=== PATIENT | male | born 1955 | race Caucasian/White ===

== ENCOUNTER 2024-05-06 07:53 | Inpatient (IN) ==
--- NOTE | 2024-04-08 10:07 | PAT Medication Instructions ---
Medication Instructions Date of Service April 08, 2024 Home Medications aspirin 81 mg tablet,delayed release 40.5 mg PO BID Equolibrium 1 tab PO QAM [place] 1 tab PO QAM scvlklz-eszriemtkmcja-ihbmxhay 250 mg-250 mg-65 mg tablet (Excedrin Migraine) 1 tab PO Q6H PRN Headache cholecalciferol (vitamin D3) 125 mcg (5,000 unit) tablet (Vitamin D3) 125 mcg PO QAM magnesium 1 tab PO QAM tamsulosin 0.4 mg capsule (Flomax) 0.4 mg PO DAILY PRN urinary flow slowing vitamin K2 1 tab PO QAM ASK your surgeon for instructions xxgnbeg-ycclmimxgzixa-ejkipitx 250 mg-250 mg-65 mg tablet (Excedrin Migraine) 1 tab PO Q6H PRN Headache ASK your prescriber and surgeon aspirin 81 mg tablet,delayed release 40.5 mg PO BID STOP taking 2 weeks before surgery (or as soon as possible if surgery is within 2 weeks) Equolibrium 1 tab PO QAM [place] 1 tab PO QAM vitamin K2 1 tab PO QAM DO NOT take the morning of surgery cholecalciferol (vitamin D3) 125 mcg (5,000 unit) tablet (Vitamin D3) 125 mcg PO QAM magnesium 1 tab PO QAM Take morning of surgery With a small sip of water, OTHERWISE NOTHING TO EAT OR DRINK AFTER MIDNIGHT: tamsulosin 0.4 mg capsule (Flomax) 0.4 mg PO DAILY PRN urinary flow slowing (if needed) Other Notes If you have any questions please call us at [phone] or [phone] or [phone] or [phone]
--- NOTE | 2024-04-16 10:43 | Anesthesiology Consultation ---
Date of Service April 16, 2024 Assessment & Plan (1) Encounter for pre-operative examination: Chart Review Chart Review: Acceptable Risk for Surgery and Patient seen in Pre Admission Testing Per PAT appt on 04/16/24, no recent illness/disease exposures, illness related symptoms, or recent illness/disease positive tests. Will leave to surgeon's discretion if preop Covid testing needed Patient seen by PCP 04/21/24= seen for preop exam. Reviewed preop testing. Patient is medically cleared for surgery. Continue medications as directed. Hold NSAIDs, supplements and vitamins 7 days prior to surgery. Pt expressed that surgeon advised patient to continue ASA 81mg daily. Teaching & Discussion Pre-Anesthesia Teaching/Discussion Notes: Instructed NPO after midnight before surgery,except medications with 15 cc of water. Medication instructions provided according to the [facility] guidelines. History Surgery Operation Date: 05/06/24 07:45 Proposed Procedures p L2 to S1 Decompression and Fusion Spinal Cord Monitoring - Richie Loomis, Height/Weight Height: 6 ft Weight: 96.8 kg Allergies Allergy/AdvReac Type Severity Reaction Status Date / Time adhesive Allergy skin Verified 04/08/24 09:01 irritation Medications Home Medications Medication Instructions Recorded Confirmed Last Taken aspirin 81 mg tablet,delayed 40.5 mg PO BID 10/09/19 04/08/24 Unknown release Equolibrium 1 tab PO QAM 04/08/24 04/08/24 Unknown [place] 1 tab PO QAM 04/08/24 04/08/24 Unknown cvkohks-taanwktqxglem-qyhhpzcz 250 1 tab PO Q6H PRN Headache 04/08/24 04/08/24 Unknown mg-250 mg-65 mg tablet (Excedrin Migraine) cholecalciferol (vitamin D3) 125 125 mcg PO QAM 04/08/24 04/08/24 Unknown mcg (5,000 unit) tablet (Vitamin D3) magnesium 1 tab PO QAM 04/08/24 04/08/24 Unknown tamsulosin 0.4 mg capsule (Flomax) 0.4 mg PO DAILY PRN urinary flow 04/08/24 04/08/24 Unknown slowing vitamin K2 1 tab PO QAM 04/08/24 04/08/24 Unknown Past Medical History Medical History History of abdominal aortic aneurysm (AAA) s/p repair [address] 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 Hx of migraines None x years Left inguinal hernia also presumed umbilical hernia as well Nephrolithiasis no current issues Prostate cancer Dx 2016, "taken natural supplements to manage" no current issues Exercise / Class Metabolic Activity II 4-5 Yardwork/Stairs/Walk up hill (one flight of stairs- no chest pain or SOB ) Past Family History Family History Brother Diabetes Past Surgical History Surgical History History of AAA (abdominal aortic aneurysm) repair 2022 ([facility]) History of anesthesia reaction Trouble urinating after surgery (multiple) History of urologic surgery Stone extraction Hx of colonoscopy Hx of cornea transplant left eye Hx of right inguinal hernia repair S/P appendectomy S/P knee replacement right Past Anesthesia History No Hx of Anesthesia Complications (with exception to urinary retention (significant) and slow to wake (just groggy - no reintubation or ICU stay)) and No Family Hx of Anesthesia Complications History of PONV No Hx of PONV and No Hx of Motion Sickness Social History Smoking Status: Former smoker Do You Dip or Chew Tobacco: No Smoking End Date: 03/2024 Hx Alcohol Use: Yes (quit age 33) Hx Substance Use: Yes substance use type: former substance user and marijuana Last Used Substance Other:: quit age 33 Review of Systems - Increased coughing since quit smoking- improving - Rare reflux - no current issues- usually relieved with Tums and apple cider vinegar - Snoring- no hx of sleep study Patient denies chest pain, shortness of breath, dyspnea on exertion, reflux, wheezing, palpitations. No hx of seizures, stroke, LA. No hx of blood clots or blood transfusions Physical Exam Vital Signs VITALS BP 130/84 P 65 TEMP 97.7 SP02 94% RESP 16 Constitutional no acute distress ENMT Mouth: no TMJ clicking Thyromental Distance: > or= 3.5 Finger Breadths (4.0) Mallampati Class: III Top front permanent bridge Missing molars/side teeth Neck + limited neck extension and + facial hair (advised to trim/shave ) Respiratory normal respiratory effort; no respiratory distress Auscultation: lungs clear to auscultation bilaterally; no wheezes Cardiovascular Rate/Rhythm: regular rate and regular rhythm Heart Sounds: no murmur Vessels: no carotid bruit Musculoskeletal Spine: no pain with cervical ROM Extremities: extremities normal to inspection Psychiatric Orientation: alert Lab Results Anesthesia Preop Results Results Anesthesia Widget: WBC 6.30 K/ul (4.8-10.8) 04/16/24 Hgb 14.1 g/dl (14.0-18.0) 04/16/24 Hct 41.2 % (42.0-52.0) L 04/16/24 Plt 232 K/uL (130-400) 04/16/24 Na 138 mmol/L (136-145) 04/16/24 K 4.2 mmol/L (3.5-5.1) 04/16/24 Cl 103 mmol/L (98-107) 04/16/24 CO2 29 mmol/L (21-32) 04/16/24 BUN 18 mg/dl (6-23) 04/16/24 Creat 0.58 mg/dl (0.6-1.4) L 04/16/24 Glucose Level 108 mg/dl (70-99(Fasting)) H 04/16/24 PT 10.5 Seconds (9.0-12.0) 04/16/24 PTT 27 Seconds (21-31) 04/16/24 INR 1.0 (0.9-1.1) 04/16/24 Urine Color Yellow 04/16/24 Urine Appearance Clear (Clear) 04/16/24 Urine pH 7.5 (4.5-7.5) 04/16/24 Urine Specific [place] 1.022 (1.000-1.030) 04/16/24 Urine Protein 1+ (Negative) H 04/16/24 Urine Glucose (UA) Negative (Negative) 04/16/24 Urine Ketones Negative (Negative) 04/16/24 Urine Blood 1+ (Negative) H 04/16/24 Urine Nitrite Negative (Negative) 04/16/24 Urine Bilirubin Negative (Negative) 04/16/24 Urine Urobilinogen Negative (Negative) 04/16/24 Urine Leukocyte Esterase Negative (Negative) 04/16/24 Urine WBC (Auto) 0-5 /hpf (0-5) 04/16/24 Urine RBC (Auto) 11-20 /hpf (0-2) H 04/16/24 Urine Hyaline Casts (Auto) 0-2 /lpf (0-2) 04/16/24 Urine Epithelial Cells (Auto) 0-2 /hpf (0-2) 04/16/24 Urine Bacteria (Auto) None Seen (None Seen) 04/16/24 Blood Type A Positive 04/16/24 Antibody Screen NEGATIVE 04/16/24 Testing Electrocardiogram Date: 04/16/24 Findings: + NSR @ (66bpm) RBBB Chest X-Ray Date: 04/16/24 Findings: + NAD Stress Test Date: 11/02/22 Type: nuclear Exercise stress test performed using the Willie protocol supplemented with regadenoson EKG portion of stress is normal No ischemic ST segment changes. No stress associated chest pain. No significant dysrhythmia. Incomplete RBBB Post stress, the LV with an EF of 66% Normal RV size, uptake and function Good study quality Normal myocardial perfusion study. The study findings represent a low risk Other Testing Abdomen/Pelvis CTA 02/13/24= Postprocedural changes of aorto-bi iliac endograft placement. Excluded aneurysm sac is decreased in size measuring 4.7 x 4.6 cm, previously 5.3 x 5.1 cm. No evidence of endoleak. 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 Interval increase in size of an intermediate density lesion in the anterior aspect of the right kidney measuring 2.5cm. previously 2.1cm. This is indeterminate though favored to represent a cyst with internal hemorrhagic or proteinaceous disease. Recommend further evaluation with renal ultrasound to confirm cystic nature and rule out solid mass, particularly given increase in size. Apparent circumferential wall thickening of a poorly distended bladder. Appearance is likely due to under distension, though could also be due to chronic bladder outl et obstruction given severe prostatomegaly
[~2024-05-06 07:53] MED LIST: DEXAMETHASONE SOD INJ 4 MG/ML VIAL ONE; GLYCOPYRROLATE 0.2 MG/ML VIAL ONE; LIDOCAINE 2% 2 ML VIAL/AMP(20MG/ML) INFIL ONE; MIDAZOLAM HCL 1 MG/ML 2ML VIAL ONE; ONDANSETRON INJ 2 MG/ML 2 ML VIAL ONE; PROPOFOL IV EMULSION 10 MG/ML 20 ML VIAL IV ONE; ROCURONIUM BROMIDE 10 MG/ML 5 ML VIAL IV ONE; SUGAMMADEX SODIUM 200 MG/2 ML VIAL IV ONE; fentaNYL citrate PF 100 MCG/2 ML VIAL ONE
[2024-05-06] MEDS: LR 15ML/HR IV SCH (08:25)
[2024-05-06] MEDS: LR 60ML/HR IV SCH (08:25)
[2024-05-06] MEDS: GABAPENTIN 300 MG CAP PO SCH (08:26)
[2024-05-06] MEDS: CeleBREX 200 MG CAP PO SCH (08:26)
[2024-05-06] MEDS: ACETAMINOPHEN 500 MG TAB PO SCH (08:26)
[2024-05-06] MEDS ORDERED: FLUMAZENIL 0.1 MG/1 ML 10 ML VIAL IV PRN (08:29)
[2024-05-06] MEDS ORDERED: NALOXONE HCL 0.4 MG/1 ML VIAL/CARP IV PRN ×2 (08:29→14:50)
[2024-05-06] MEDS ORDERED: ATROPINE SULFATE 0.1 MG/ML 10ML SYR IV PRN (08:29)
[2024-05-06] MEDS ORDERED: LABETALOL HCL IV 5 MG/ML 20ML IV PRN (08:29)
[2024-05-06] MEDS ORDERED: HYDROmorphone INJ 1 MG/ML SYRINGE IV PRN ×2 (08:29→14:50)
[2024-05-06] MEDS ORDERED: PROMETHAZINE HCL 6.25 MG in SODIUM CHLORIDE 0.9% 50 ML IV PRN (08:29)
[2024-05-06] MEDS ORDERED: ePHEDrine sulfate 50 MG/ML AMP IV PRN (08:29)
[2024-05-06] MEDS ORDERED: ONDANSETRON INJ 2 MG/ML 2 ML VIAL IV PRN ×2 (08:29→14:50)
[2024-05-06] MEDS ORDERED: fentaNYL citrate PF 100 MCG/2 ML VIAL IV PRN (08:29)
--- NOTE | 2024-05-06 09:03 | History & Physical Report ---
Date of Service May 06, 2024 Assessment & Plan (1) Lumbosacral spondylosis with radiculopathy: Plan: L3-S1 decompression and fusion History of Present Illness Chief Complaint: Back and bilateral leg pain Primary Care Provider: Herman Hurley This is a 68-year-old male presents for chronic persistent back and leg pain after failing course of nonoperative care is here for surgical invention. Allergies Allergy/AdvReac Type Severity Reaction Status Date / Time adhesive Allergy skin Verified 04/08/24 09:01 irritation Home Medications Medication Instructions Recorded Confirmed Type aspirin 81 mg tablet,delayed 40.5 mg PO BID 10/09/19 05/06/24 History release Equolibrium 1 tab PO QAM 04/08/24 05/06/24 History [place] 1 tab PO QAM 04/08/24 05/06/24 History lwpwhis-mvjogurhpelrp-tilnxnvb 250 1 tab PO Q6H PRN Headache 04/08/24 05/06/24 History mg-250 mg-65 mg tablet (Excedrin Migraine) cholecalciferol (vitamin D3) 125 125 mcg PO QAM 04/08/24 05/06/24 History mcg (5,000 unit) tablet (Vitamin D3) magnesium 1 tab PO QAM 04/08/24 05/06/24 History tamsulosin 0.4 mg capsule (Flomax) 0.4 mg PO DAILY PRN urinary flow 04/08/24 05/06/24 History slowing vitamin K2 1 tab PO QAM 04/08/24 05/06/24 History Past Med/Surg History Problem List (Updated 05/06/24 @ 09:03 by Richie Loomis DO) Lumbosacral spondylosis with radiculopathy Encounter for pre-operative examination Medical History History of abdominal aortic aneurysm (AAA) s/p repair [address] 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 Hx of migraines None x years Left inguinal hernia also presumed umbilical hernia as well Nephrolithiasis no current issues Prostate cancer Dx 2015, "taken natural supplements to manage" no current issues Surgical History History of AAA (abdominal aortic aneurysm) repair 2022 ([facility]) History of anesthesia reaction Trouble urinating after surgery (multiple) History of urologic surgery Stone extraction Hx of colonoscopy Hx of cornea transplant left eye Hx of right inguinal hernia repair S/P appendectomy S/P knee replacement right Family History Brother Diabetes Social History Smoking Status: Former smoker Smoking End Date: 03/2024; Second Hand Exposure: No; Do You Dip or Chew Tobacco: No; Tobacco Cessation Education Requested by Patient: No Hx Alcohol Use: Yes (quit age 33) Hx Substance Use: Yes Last Used Substance Other:: quit age 33 Preferred Language: Azerbaijani Communication Ability: Effective Asbestos Surveyor Required: No Beliefs That Will Affect Care: None marital status: Current Living Situation: Spouse current occupational status: retired Other Information That Helps Us Care for You: No Feels Safe at Home: Yes Safety Concerns: Feels Safe At This Time Assistive Devices: Glasses and Other Assistive Devices Comment: permanent dental bridge Physical Exam Physical Exam: Patient is alert and oriented Heart regular rhythm Lungs clear Results & Data Results & Data Vital Signs (Past 12 Hours) Vital Signs Temp Pulse Resp BP Pulse Ox O2 Del Method 05/06/24 08:53 36.4 C L 88 20 142/88 H 95 Room Air
--- NOTE | 2024-05-06 09:03 | History & Physical Bridge Note ---
Date of Service May 06, 2024 History & Physical Bridge Note I have examined the patient, reviewed the History & Physical and in the interval since the performance of the History & Physical I have noted the following changes of clinical significance: no changes noted
[2024-05-06] MEDS: ceFAZolin 2000MG 2,000 MG/15 ML SYR IV SCH ×2 (09:51→18:39)
[2024-05-06] MEDS: BUPIVACAINE/EPINEPHRINE 0.25% 1:200,000 30 ML VIAL ONE (10:20)
[2024-05-06] MEDS ORDERED: fentaNYL citrate PF 100 MCG/2 ML VIAL ONE (10:34)
[2024-05-06] MEDS ORDERED: HYDROmorphone INJ 2 MG/ML SYR/VIAL ONE (11:38)
[2024-05-06] MEDS: FLOSEAL HEMOSTATIC MATRIX 10ML TOP ONE (12:31)
[2024-05-06] MEDS: ceFAZolin 330 MG/ML 1 GM VIAL ONE (12:32)
--- NOTE | 2024-05-06 12:48 | Operative Report ---
Post Operative Report Pre & Post Diagnosis Operation Date: 05/06/24 09:15 Pre-Op Diagnosis: Lumbosacral spondylosis with radiculopathy Lumbar spinal stenosis with neurogenic claudication Spondylolisthesis L4-L5 Post-Op Diagnosis: Same I identified the patient and participated in the time-out.: Yes Procedure Operation Date: 05/06/24 09:15 Actual Procedures #1 lumbar decompression bilaterally facetectomies and foraminotomies L2-L3, L3- L4, L4-L5 and L5-S1. #2 posterior spinal fusion L3-S1. #3 placement of posterior segmental instrumentation L3-S1. #4 interbody fusion L3-L4, L4-5 and L5-S1. #5 placement of Spira 13 x 26 mm at L3-L4, 15 x 26 mm x 2 at L4-5 and 14 x 26 mm x 2 at L5-S1. #6 placement locally harvested morselized autograft posterior gutters. #7 placement infuse collagen sponge combined with Koros in the posterior lateral gutters and os design interbody space. #8 application of versa wrap of the exposed dura. Surgeon Richie Loomis, DO Pipe Out Worker Alli Romero Estimated Blood Loss 500 Findings Consistent with Post-Op Diagnosis Specimens None Indications This is a 68-year-old male presents publish diagnosis of failed course of nonoperative care is here for surgical invention. Description of Procedure Patient was met with identified informed consent obtained. Patient was then taken to the operative suite underwent intubation placed in a prone position the Jd table atop the Juma frame. All bony promises well-padded eyes inspected to ensure no external pressure placed upon them. This point the lumbar spine was prepped and draped in normal sterile fashion. Sharp dissection with the assistance of Bovie cautery performed down to and exposing the lamina transverse processes of L3 L4-5 and the sacral ala bilaterally. From a caudal assessment fashion complete laminectomy of L5 was performed with bilateral medial facetectomies and foraminotomies. This was followed by complete laminectomy of L4 with bilateral medial facetectomies and foraminotomies followed by complete laminectomy of L3 with bilateral medial facetectomies and foraminotomies and lastly partial laminectomy L2 with bilateral medial facetectomies and foraminotomies. All levels had severe subarticular and foraminal disease causing significant neural compression. Pedicle screws were then placed in L3-L4-L5 and S1 levels bilaterally with assistance of fluoroscopy and appropriate size rober contoured and placed. By way of transforaminal approach on the right discectomy of L5-S1 was performed endplates guarded to subcortical mean bone and a 14 x 26 mm Spira cage with os design bone graft apposition. Then proceeded to the left transforaminal region at L5-S1. Discectomy performed endplates guarded to subcortical bleeding bone and a second 14 x 26 mm Spira cage filled with os design bone graft tapped in position. Then proceeded L4-[address] transforaminal approach on the left discectomy was performed endplates guided to subcortical bleeding bone and a 15 x 26 mm spiral cage filled with os design bone graft tapped in position. Then proceeded to the right transforaminal region at L4-5. Discectomy performed endplates guided to subcortical and bone and a second 15 x 26 mm Spira cage filled with os designed tapped into position. Lastly procedure approached L3-L4 by way of a transforaminal approach on the right. A complete discectomy performed endplates corrected to subcortical bleeding bone and a 13 x 26 mm Spira cage filled with os design bone graft tapped in position. The rods were then compressed locked in final position bilaterally. The transverse processes of L3 L4-5 and sacral ala burred to subcortical bleeding bone. Infuse collagen sponge combined with Koros and local autograft placed in the posterior lateral gutters. Versa wrap placed over the exposed dura. 15 round MAURICIO drain inserted. The incision was then closed with 1 Vicryl in the fascia 2-0 Vicryl subcutaneously and 4 Monocryl for final skin closure. Please note spinal cord monitoring was utilized at the procedure no changes noted. Alli Gray was present at the entire surgery and while the patient positioning complex portion of the surgery and final skin closure. Im ordering 20 grams of Triple [place] Collagen Powder (Wellcentive [id number]) to treat an incision wound that was caused by a spine procedure. The incision is approximately 2 cm(W) x 4 cm(L) into the joint (D) in size and is a full thickness wound. Triple [place] collagen comes in 1 gram packets so 20 packets were ordered. Given the size of the wound, with light to moderate exudate I chose to order a 20 day supply. The patient will be provided instructions for proper application of the collagen wound kit. The patient will be asked to apply the collagen powder daily and then cover it with sterile dressings dispensed. Collagen was selected as I expect the collagen to attract monocytes and fibroblasts, act as a sacrificial substrate for MMPs, and ultimately proved a matrix for tissue and vessel growth. The collagen will act as a primary dressing in this scenario. It is medically necessary for proper healing of these wounds to improve bioavailability and contact with each wound surface, this is also to help prevent infection of wounds and promote healing ultimately leading to a better healing outcome and limit the risk of infection. I attest to the content of the Intraoperative Record and any orders documented therein. Any exceptions are noted below.
--- NOTE | 2024-05-06 14:15 | Anesthesiology Progress Note ---
Date of Service May 06, 2024 Anesthesia Post Procedure Vital Signs Vital Signs: Temp Pulse Pulse Resp BP Pulse Ox O2 Del Method 05/06/24 14:00 36 C L 90 12 119/70 96 Nasal Cannula 05/06/24 13:50 86 12 123/80 94 Nasal Cannula 05/06/24 13:40 83 12 121/91 95 Nasal Cannula 05/06/24 13:30 83 14 129/77 96 Nasal Cannula 05/06/24 13:20 87 14 131/78 97 Oxymask 05/06/24 13:10 36.2 C L 74 12 122/74 96 Oxymask 05/06/24 08:53 36.4 C L 88 20 142/88 H 95 Room Air O2 Flow Rate 05/06/24 14:00 2 05/06/24 13:50 2 05/06/24 13:40 2 05/06/24 13:30 2 05/06/24 13:20 4 05/06/24 13:10 8 05/06/24 08:53 Transfer of Care Handoff Completed per policy Notes Mental Status: alert / awake / arousable Patient Amnestic to Procedure: Yes Nausea / Vomiting: adequately controlled Pain: adequately controlled Airway Patency, RR, SpO2: stable & adequate BP & HR: stable & adequate Hydration State: stable & adequate Anesthetic Complications: no major complications apparent
[2024-05-06] MEDS ORDERED: HYDROmorphone INJ 0.5 MG/0.5 ML SYR IV PRN (14:50)
[2024-05-06] MEDS ORDERED: DO NOT ADMINISTER FLU VACCINE PRN (14:50)
[2024-05-06] MEDS ORDERED: hydrOXYzine HCl 25 MG TAB PO PRN (14:50)
[2024-05-06] MEDS ORDERED: DO NOT ADMINISTER PNEUMOCOCCAL VACCINE PRN (14:50)
[2024-05-06] MEDS ORDERED: ALUMINUM/MAGNESIUM SUSP 30 ML UDC PO PRN (14:50)
[2024-05-06] MEDS ORDERED: LORazepam 2 MG/1 ML VIAL IV PRN (14:50)
[2024-05-06] MEDS ORDERED: SOD PHOSPHATE/SOD BIPHOSPHATE ENEMA 132 ML BTL PR PRN (14:50)
[2024-05-06] MEDS ORDERED: ACETAMINOPHEN 1,000 MG/100 ML VIAL IV PRN (14:50)
[2024-05-06] MEDS ORDERED: LORazepam 0.5 MG TAB PO PRN (14:50)
[2024-05-06] MEDS ORDERED: METOCLOPRAMIDE HCL INJ 5 MG/ML 2 ML VIAL IV PRN (14:50)
[2024-05-06] MEDS ORDERED: bisacodyL 10 MG SUPP PR PRN (14:50)
[2024-05-06] MEDS ORDERED: diphenhydrAMINE Capsule 25 MG CAP PO PRN (14:50)
[2024-05-06] MEDS ORDERED: ONDANSETRON 4 MG OD TAB PO PRN (14:50)
[2024-05-06] MEDS ORDERED: MAGNESIUM HYDROXIDE SUSP 30 ML UDC PO PRN (14:50)
[2024-05-06] MEDS ORDERED: PROMETHAZINE 12.5 MG/50.5 ML BAG IV PRN (14:50)
[2024-05-06] MEDS ORDERED: TAMSULOSIN HCL 0.4 MG CAP PO PRN (14:50)
--- NOTE | 2024-05-06 15:00 | Fluoroscopy Report ---
FL lumbar spine 2-3V CLINICAL HISTORY: L3-S1 DECOMPRESSION AND FUSION TECHNIQUE: 2 views were obtained with the C-arm in the OR with the above procedure. Total fluoroscopy time was 26.6 seconds. Radiation dose was 24.21 mGy. Comparison: Comparison is made to MRI lumbar spine 02/05/2024 FINDINGS/IMPRESSION: Intraoperative images were obtained of L3-S1 decompression and fusion. Please correlate with intraoperative fluoroscopy and operative report. ACT 112: Negative or not required by law. Electronically signed by: Angus Paris M.D. 05/06/2024 2:59 PM
--- NOTE | 2024-05-06 15:14 | Hospitalist Consultation ---
Date of Consultation May 06, 2024 Assessment & Plan (1) Lumbosacral spondylosis with radiculopathy: (2) S/P spinal surgery: Plan Neeraj Ortega is a 68-year-old male with past medical history significant for AAA s/p surgical repair in 2022, tobacco use disorder and prostate cancer who [facility] after undergoing elective L3-S1 decompression and fusion for management of lumbosacral spondylosis with radiculopathy performed by Dr. Richie Loomis on 05/06/2024. Lumbosacral Spondylosis with Radiculopathy S/P Surgery: POD #0 L3-S1 decompression and fusion performed by Dr. Richie Loomis on 05/06/2024. EBL: 500mL & Pre-Op Hgb: 14.1 [as of 04/16/2024] Per ortho for pain control, wound care, anticoagulation and activities. Continue incentive spirometry, PT/OT when appropriate as per ortho team. Monitor H/H for acute blood loss anemia and transfuse blood products PRN. Other Chronic Medical Conditions: * AAA - S/p surgical repair in 2022. Can continue home ASA. * Tobacco Use Disorder - Quit smoking ~7 weeks ago. Was previously smoking 3-4 cigarettes/day. * Prostate Cancer - Currently under observation. No history of chemotherapy or radiation. Continue Flomax. DVT Prophylaxis: SCDs/TEDs as per primary service. Code Status: FULL CODE PCP: Herman Casey MD [[facility]] Disposition: Admitted in Med/Surg - Discharge planning as per primary service. Thank you for this consultation. We will follow the patient with you during their hospital stay. You can [facility] a [facility] via [employer]. Patient seen in collaboration with Dr. Chiu. Please see addendum. I spent a total of 45 minutes coordinating, documenting, and providing care for this patient excluding time spent in the performance of separately billed services. This included personally reviewing all current laboratories and imaging studies, medical reconciliation, outpatient chart review and discussion with specialists. This chart was completed in part utilizing Speech Voice Recognition Software. Grammatical errors, random word insertions, pronoun errors, and incomplete sentences are an occasional consequence of this system due to software limitations, ambient noise, and hardware issues. Any formal questions or concerns about the content, text, or information contained within the body of this dictation should be directly addressed to the provider for clarification. Supervising Physician Co-Signing Physician Notes Attending Addendum: Case reviewed with the advanced practitioner. I have personally performed a history and physical examination on the patient. I have reviewed the advanced practitioner's documentation on the date of service referenced in note, and I agree with, and take responsibility for the plan of care. please refer to her notes for full details patient seen and examined, records reviewed by myself as well diagnoses and plan of care as per advanced practitioner's notes Odin Chiu MD History of Present Illness Reason for Consultation: Routine Postoperative Medical Management Requesting Physician: Richie Loomis DO Attending Physician: Richie Loomis DO History of Present Illness Neeraj Ortega is a 68-year-old male with past medical history significant for AAA s/p surgical repair in 2022, tobacco use disorder and prostate cancer who [facility] after undergoing elective L3-S1 decompression and fusion for management of lumbosacral spondylosis with radiculopathy performed by Dr. Richie Loomis on 05/06/2024. History obtained from the patient and associated chart review. Patient seen and examined at bedside this evening. Reports good pain control at the moment. He is saturating well on room air. Ate dinner this evening without any issue. Denies any chest pain, shortness of breath or abdominal pain. Johnson catheter is intact and draining clear, yellow urine without any issue. He has a MAURICIO drain x 1 which is draining serosanguineous output. Mentions he stopped smoking cigarettes about 7 and half weeks ago. Previously before that he was smoking 3 to 4 cigarettes a day - which he did since he was a teenager in high school. Denies any daily alcohol use. Allergies Allergy/AdvReac Type Severity Reaction Status Date / Time adhesive Allergy skin Verified 04/08/24 09:01 irritation Home Medications Medication Instructions Recorded Confirmed Type aspirin 81 mg tablet,delayed 40.5 mg PO BID 10/09/19 05/06/24 History release Equolibrium 1 tab PO QAM 04/08/24 05/06/24 History [place] 1 tab PO QAM 04/08/24 05/06/24 History iuyzidu-qrjgsopljreik-zkffwglb 250 1 tab PO Q6H PRN Headache 04/08/24 05/06/24 History mg-250 mg-65 mg tablet (Excedrin Migraine) cholecalciferol (vitamin D3) 125 125 mcg PO QAM 04/08/24 05/06/24 History mcg (5,000 unit) tablet (Vitamin D3) magnesium 1 tab PO QAM 04/08/24 05/06/24 History tamsulosin 0.4 mg capsule (Flomax) 0.4 mg PO DAILY PRN urinary flow 04/08/24 05/06/24 History slowing vitamin K2 1 tab PO QAM 04/08/24 05/06/24 History Patient History Medical History History of abdominal aortic aneurysm (AAA) s/p repair [address] 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 Hx of migraines None x years Left inguinal hernia also presumed umbilical hernia as well Nephrolithiasis no current issues Prostate cancer Dx 2015, "taken natural supplements to manage" no current issues Surgical History Hx of colonoscopy History of AAA (abdominal aortic aneurysm) repair 2022 ([facility]) Hx of cornea transplant left eye Hx of right inguinal hernia repair History of anesthesia reaction Trouble urinating after surgery (multiple) History of urologic surgery Stone extraction S/P knee replacement right S/P appendectomy Family History Brother Diabetes Social History Smoking Status: Former smoker Smoking End Date: 03/2024; Second Hand Exposure: No; Do You Dip or Chew Tobacco: No; Tobacco Cessation Education Requested by Patient: No Hx Alcohol Use: Yes (quit age 33) Hx Substance Use: Yes Last Used Substance Other:: quit age 33 Preferred Language: Greenlandic Communication Ability: Effective Talent Director Required: No Beliefs That Will Affect Care: None marital status: Current Living Situation: Spouse current occupational status: retired Other Information That Helps Us Care for You: No Feels Safe at Home: Yes Safety Concerns: Feels Safe At This Time Assistive Devices: Glasses and Other Assistive Devices Comment: permanent dental bridge Review of Systems Review of Systems: At least ten systems reviewed and negative, except as noted in the HPI. Physical Exam Physical Exam: General: WD/WN, NAD, sitting up chair at bedside, pleasant, conversing appropriately. A+Ox3, euthymic affect. HEENT: Normocephalic, atraumatic. Conjunctivae normal, anicteric sclerae. External ear and nose normal, oropharynx normal. Respiratory: Normal respiratory effort, lungs clear to auscultation, no wheeze/rales/rhonchi. No accessory muscle use. Cardiovascular: Regular rate, rhythm, normal peripheral pulses, no BLE edema. Vessels: No JVD. Abdomen/GI: Normal bowel sounds, soft, nondistended, nontender to palpation in all quadrants. : Johnson catheter intact and draining clear, yellow urine without issue. Extremities/Musculoskeletal: No cyanosis or clubbing, sensation intact in BLE, able to actively move his BLE. Neurologic: No overt focal deficits, CN's II-XI not formally tested but appear grossly intact bilaterally. Skin: No rashes, normal color, warm/dry. MAURICIO drain x 1 intact and draining serosanguineous output without issue. Results & Data Results & Data Vital Signs (Past 12 Hours) Vital Signs Temp Pulse Pulse Resp BP Pulse Ox O2 Del Method 05/06/24 15:01 89 18 131/77 96 Nasal Cannula 05/06/24 14:35 36.3 C L 83 16 127/72 96 Nasal Cannula 05/06/24 14:15 88 16 111/67 96 Nasal Cannula 05/06/24 14:00 36 C L 90 12 119/70 96 Nasal Cannula 05/06/24 13:50 86 12 123/80 94 Nasal Cannula 05/06/24 13:40 83 12 121/91 95 Nasal Cannula 05/06/24 13:30 83 14 129/77 96 Nasal Cannula 05/06/24 13:20 87 14 131/78 97 Oxymask 05/06/24 13:10 36.2 C L 74 12 122/74 96 Oxymask 05/06/24 08:53 36.4 C L 88 20 142/88 H 95 Room Air O2 Flow Rate 05/06/24 15:01 2 05/06/24 14:35 2 05/06/24 14:15 2 05/06/24 14:00 2 05/06/24 13:50 2 05/06/24 13:40 2 05/06/24 13:30 2 05/06/24 13:20 4 05/06/24 13:10 8 05/06/24 08:53 Diagnostic Findings Lumbar Spine X-Ray 05/06/24 09:15 FL lumbar spine 2-3V CLINICAL HISTORY: L3-S1 DECOMPRESSION AND FUSION TECHNIQUE: 2 views were obtained with the C-arm in the OR with the above pr ocedure. Total fluoroscopy time was 26.6 seconds. Radiation dose was 24.21 mGy. Comparison: Comparison is made to MRI lumbar spine 02/05/2024 FINDINGS/IMPRESSION: Intraoperative images were obtained of L3-S1 decompression and fusion. Please correlate with intraoperative fluoroscopy and operative report. ACT 112: Negative or not required by law. Electronically signed by: Angus Paris M.D. 05/06/2024 2:59 PM Medications Administered Acetaminophen (Acetaminophen 500 Mg Tab) 1,000 mg PO PREOP ALMAZ Stop: 05/06/24 18:00 Last Admin: 05/06/24 08:26 Dose: 1,000 mg Documented By: DSW Celecoxib (Celebrex 200 Mg Cap) 200 mg PO PREOP ALMAZ Stop: 05/06/24 18:00 Last Admin: 05/06/24 08:26 Dose: 200 mg Documented By: DSW Gabapentin (Gabapentin 300 Mg Cap) 300 mg PO PREOP ALMAZ Stop: 05/06/24 18:00 Last Admin: 05/06/24 08:26 Dose: 300 mg Documented By: DSW Lactated Ringer's (Lr) 1,000 mls @ 15 mls/hr IV .Q24H ALMAZ Stop: 05/07/24 05:59 Last Infusion: 05/06/24 09:48 Dose: Infused Documented By: Admin: 05/06/24 08:25 Dose: 15 mls/hr Documented By: DSW Lactated Ringer's (Lr) 1,000 mls @ 60 mls/hr IV .[id number] ALMAZ Stop: 05/06/24 22:39 Last Admin: 05/06/24 08:25 Dose: Not Given Documented By: DSW Cefazolin Sodium (Ancef 2000mg) 2,000 mg in 15 mls @ 3.75 mls/min IV PREOP ALMAZ; Protocol Stop: 05/06/24 18:00 Last Admin: 05/06/24 09:51 Dose: 3.75 mls/min Documented By: [id number] Discontinued Medications Bupivacaine HCl/Epinephrine Bitart (Bupivacaine/Epinephrine 0.25% 1:200,000 30 Ml Vial) Confirm Administered Dose 30 ml .ROUTE .STK-MED ONE Stop: 05/06/24 09:26 Last Admin: 05/06/24 10:20 Dose: 25 ml Documented By: GMB Cefazolin Sodium (Cefazolin 330 Mg/Ml 1 Gm Vial) Confirm Administered Dose 990 m g .ROUTE .STK-MED ONE Stop: 05/06/24 09:26 Last Admin: 05/06/24 12:32 Dose: 990 mg Documented By: GMB Miscellaneous ( Floseal Hemostatic Matrix 10ml) 10 ml TOP ONCE ONE Stop: 05/06/24 12:32 Last Admin: 05/06/24 12:31 Dose: 30 ml Documented By: GMB
[2024-05-06] MEDS: oxyCODONE HCL IR 5 MG TAB (IMMEDIATE RELEASE) PO PRN (17:11)
[2024-05-06] MEDS: ASPIRIN 81 MG CHEW PO SCH (22:13)
[2024-05-06] MEDS: DOCUSATE SODIUM/SENNA 50/8.6MG TAB PO SCH (22:13)
[2024-05-07] MEDS: POLYETHYLENE (MIRALAX) 17 GM PACK PO SCH (05:59)
[2024-05-07] MEDS: KETOROLAC 30 MG/ML VIAL IV PRN (05:59)
[2024-05-07 06:25] LABS: Basophils # (auto) 0.01 K/uL (0.00-0.20); Basophils % (auto) 0.1 %; Hematocrit (blood only) 34.4 % (42.0-52.0); Hemoglobin 11.7 g/dl (14.0-18.0); Immature Granulocytes # (auto) 0.05 K/uL (0.01-0.20); Immature Granulocytes % (auto) 0.4 %; Lymphocytes # (auto) 1.04 K/uL (1.20-3.40); Lymphocytes % (auto) 8.1 %; Mean Corpuscular Hemoglobin 30.9 pg (25.0-34.0); Mean Corpuscular Volume 90.8 fL (80.0-100.0); Monocytes # (auto) 1.13 K/uL (0.11-0.59); Monocytes % (auto) 8.8 %; Neutrophils # (auto) 10.59 K/uL (1.40-6.50); Neutrophils % (auto) 82.6 %; Platelet Count 232 K/uL (130-400); RDW Coefficient of Variation 13.3 % (11.5-14.5); RDW Standard Deviation 44.2 fL (36.4-46.3); Red Blood Count 3.79 M/uL (4.70-6.10); White Blood Count 12.82 K/ul (4.8-10.8)
[2024-05-07 06:52] LABS: BUN Creatinine Ratio 26.2 (10-20); Calcium 8.2 mg/dl (8.6-10.3); Creatinine Clr Calc Pharmacy 143.9 ml/min; Magnesium 1.7 mg/dl (1.7-2.4); Phosphorus 2.5 mg/dl (2.5-4.9)
[2024-05-07] MEDS: dexAMETHasone 6 MG in SYRINGE 0 ML IV SCH (07:37)
[2024-05-07] MEDS: ACETAMINOPHEN 500 MG TAB PO PRN (07:37)
[2024-05-07] MEDS: CHOLECALCIFEROL 125 MCG (5,000 UNITS) TAB PO SCH (07:37)
[2024-05-07] MEDS: MAGNESIUM OXIDE 400 MG TAB PO SCH (07:38)
[2024-05-07] MEDS: FAMOTIDINE 20 MG TAB PO PRN (08:04)
[2024-05-07] MEDS ORDERED: VITAMIN K2 PO SCH (09:00)
[2024-05-07] MEDS ORDERED: [UNRECOGNIZED DRUG - OTHER] PO SCH (09:00)
--- NOTE | 2024-05-07 11:04 | Orthopedic Progress Note ---
Date of Service May 07, 2024 Assessment & Plan (1) Lumbosacral spondylosis with radiculopathy: Plan: At this time we will continue physical therapy monitor his MAURICIO output over the discharge over the next few days. Admission and Anticipated Discharge Date Admission Date: May 06, 2024 Subjective Back pain controlled leg symptoms improved Physical Exam Physical Exam: Patient is in the chair at the bedside. She comfortable. Good strength testing. Results & Data Vital Signs (Past 12 Hours) Vital Signs Temp Pulse Resp BP Pulse Ox O2 Del Method 05/07/24 07:13 36.6 C 74 16 119/71 95 Room Air 05/07/24 02:00 36.4 C L 84 14 129/75 93 Room Air
[2024-05-07 14:51] VITALS: RESP 16
--- NOTE | 2024-05-07 15:40 | Hospitalist Progress Note ---
Date of Service May 07, 2024 Assessment & Plan (1) Lumbosacral spondylosis with radiculopathy: (2) S/P spinal surgery: Plan Neeraj Ortega is a 68-year-old male with past medical history significant for AAA s/p surgical repair in 2022, tobacco use disorder and prostate cancer who was referred to our [facility] for routine postoperative medical management after undergoing elective L3-S1 decompression and fusion for management of lumbosacral spondylosis with radiculopathy performed by Dr. Richie Loomis on 05/06/2024. Lumbosacral Spondylosis with Radiculopathy S/P Surgery: Acute blood loss anemia L3-S1 decompression and fusion performed by Dr. Richie Loomis on 05/06/2024. EBL: 500mL & Pre-Op Hgb: 14.1 [as of 04/16/2024] Hb post op of 11.7 g/dl Per ortho for pain control, wound care, anticoagulation and activities. Continue incentive spirometry, PT/OT when appropriate as per ortho team. Other Chronic Medical Conditions: * AAA - S/p surgical repair in 2022. Can continue home ASA. * Tobacco Use Disorder - Quit smoking ~7 weeks ago. Was previously smoking 3-4 cigarettes/day. * Prostate Cancer - Currently under observation. No history of chemotherapy or radiation. Continue Flomax. DVT Prophylaxis: SCDs/TEDs as per primary service. Code Status: FULL CODE PCP: Herman Casey MD [[facility]] Disposition: Admitted in Med/Surg - Discharge planning as per primary service. This chart was completed in part utilizing Speech Voice Recognition Software. Grammatical errors, random word insertions, pronoun errors, and incomplete sentences are an occasional consequence of this system due to software limitations, ambient noise, and hardware issues. Any formal questions or concerns about the content, text, or information contained within the body of this dictation should be directly addressed to the provider for clarification. Admission and Anticipated Discharge Date Admission Date: May 06, 2024 Subjective Patient seen and examined at bedside. Comfortable; not in distress. Denies fever, chills, chest pain, shortness of breath, abdominal pain or urinary symptoms. No significant overnight events Review of Systems Review of Systems: All systems reviewed & are unremarkable except as noted in Subjective Physical Exam Physical Exam: General: WD/WN, NAD, sitting up chair at bedside, pleasant, conversing appropriately. A+Ox3, euthymic affect. Respiratory: Normal respiratory effort, lungs clear to auscultation, no wheeze/rales/rhonchi. No accessory muscle use. Cardiovascular: Regular rate, rhythm, normal peripheral pulses, no BLE edema. Vessels: No JVD. Abdomen/GI: Normal bowel sounds, soft, nondistended, nontender to palpation in all quadrants. : Johnson catheter intact and draining clear, yellow urine without issue. Extremities/Musculoskeletal: No cyanosis or clubbing, sensation intact in BLE, able to actively move his BLE. Neurologic: No overt focal deficits, CN's II-XI not formally tested but appear grossly intact bilaterally. Skin: No rashes, normal color, warm/dry. MAURICIO drain x 1 intact and draining serosanguineous output without issue. Results & Data Results & Data Vital Signs (Past 12 Hours) Vital Signs Temp Pulse Resp BP Pulse Ox O2 Del Method 05/07/24 14:50 36.7 C 67 16 128/73 94 Room Air 05/07/24 12:12 94 H 18 115/60 92 Room Air 05/07/24 07:13 36.6 C 74 16 119/71 95 Room Air
--- NOTE | 2024-05-08 10:14 | Orthopedic Progress Note ---
Date of Service May 08, 2024 Assessment & Plan (1) Lumbosacral spondylosis with radiculopathy: Plan: At this time we will continue physical therapy monitor MAURICIO output anticipate discharge home tomorrow. Admission and Anticipated Discharge Date Admission Date: May 06, 2024 Subjective Back pain is controlled leg symptoms markedly improved Physical Exam Physical Exam: Patient is in the chair at the bedside. Is distended testing. Patient comfortable. Results & Data Vital Signs (Past 12 Hours) Vital Signs Temp Pulse Resp BP Pulse Ox O2 Del Method 05/08/24 07:23 36.6 C 64 16 129/74 92 Room Air
--- NOTE | 2024-05-08 10:27 | Hospitalist Progress Note ---
Date of Service May 08, 2024 Assessment & Plan (1) Lumbosacral spondylosis with radiculopathy: (2) S/P spinal surgery: Plan Neeraj Ortega is a 68-year-old male with past medical history significant for AAA s/p surgical repair in 2022, tobacco use disorder and prostate cancer [facility] after undergoing elective L3-S1 decompression and fusion for management of lumbosacral spondylosis with radiculopathy performed by Dr. Richie Loomis on 05/06/2024. Lumbosacral Spondylosis with Radiculopathy S/P Surgery: Acute blood loss anemia L3-S1 decompression and fusion performed by Dr. Richie Loomis on 05/06/2024. EBL: 500mL & Pre-Op Hgb: 14.1 [as of 04/16/2024] Hb post op of 11.7 g/dl Per ortho for pain control, wound care, anticoagulation and activities. Continue incentive spirometry, PT/OT when appropriate as per ortho team. Other Chronic Medical Conditions: * AAA - S/p surgical repair in 2022. Can continue home ASA. * Tobacco Use Disorder - Quit smoking ~7 weeks ago. Was previously smoking 3-4 cigarettes/day. * Prostate Cancer - Currently under observation. No history of chemotherapy or radiation. Continue Flomax. DVT Prophylaxis: SCDs/TEDs as per primary service. Code Status: FULL CODE PCP: Herman Casey MD [[facility]] Disposition: Admitted in Med/Surg - Discharge planning as per primary service. This chart was completed in part utilizing Speech Voice Recognition Software. Grammatical errors, random word insertions, pronoun errors, and incomplete sentences are an occasional consequence of this system due to software limitations, ambient noise, and hardware issues. Any formal questions or concerns about the content, text, or information contained within the body of this dictation should be directly addressed to the provider for clarification. Admission and Anticipated Discharge Date Admission Date: May 06, 2024 Subjective Patient seen and examined at bedside. He is comfortable; not in distress. No significant events overnight Review of Systems Review of Systems: All systems reviewed & are unremarkable except as noted in Subjective Physical Exam Physical Exam: General: WD/WN, NAD, sitting up chair at bedside, pleasant, conversing appropriately. A+Ox3, euthymic affect. Respiratory: Normal respiratory effort, lungs clear to auscultation, no wheeze/rales/rhonchi. No accessory muscle use. Cardiovascular: Regular rate, rhythm, normal peripheral pulses, no BLE edema. Vessels: No JVD. Abdomen/GI: Normal bowel sounds, soft, nondistended, nontender to palpation in all quadrants. : Johnson catheter intact and draining clear, yellow urine without issue. Extremities/Musculoskeletal: No cyanosis or clubbing, sensation intact in BLE, able to actively move his BLE. Neurologic: No overt focal deficits, CN's II-XI not formally tested but appear grossly intact bilaterally. Skin: No rashes, normal color, warm/dry. MAURICIO drain x 1 intact and draining serosanguineous output without issue. Results & Data Results & Data Vital Signs (Past 12 Hours) Vital Signs Temp Pulse Resp BP Pulse Ox O2 Del Method 05/08/24 07:23 36.6 C 64 16 129/74 92 Room Air
[2024-05-09] MEDS: traMADol HCL 50 MG TABLET PO PRN (06:26)
[2024-05-09 07:45] VITALS: BP 133/68; PULSE 58; TEMP 97.3; O2SAT 92
--- NOTE | 2024-05-09 08:15 | Discharge Summary ---
Date of Service May 09, 2024 Admission HPI Per Admitting Provider This is a 68-year-old male presents for chronic persistent back and leg pain after failing course of nonoperative care is here for surgical invention. Principal Diagnosis Lumbar spondylosis with radiculopathy Discharge Data Allergies Allergy/AdvReac Type Severity Reaction Status Date / Time adhesive Allergy skin Verified 04/08/24 09:01 irritation Consultations 05/06/24 14:50 Consult Hospitalist Routine Procedures Performed Operation Date: 05/06/24 09:15 Actual Procedures p L3-S1 Decompression and Fusion, Spinal Cord Monitoring(Not Applicable) - Richie Loomis DO Ordered Studies 05/06/24 09:15 FL lumbar spine 2-3V Routine Hospital Course (1) Lumbosacral spondylosis with radiculopathy: Patient underwent multilevel lumbar decompression fusion tolerated as well as taken orthopedic for postoperative. Postop he progressed appropriate. Tolerating physical therapy. Leg symptoms markedly improved. Excellent strength testing. MAURICIO drain decreasing. Pain well-controlled. Subsidy discharg ed home. Discharge orders instructions from the chart for further review. Total Time Total Time Spent Total Time Spent (In Minutes): 20 minutes Discharge Plan Discharge Items Patient Disposition: Home - Self-Care Reason For Visit: Spinal Stenosis Lumbar Region Neurogenic Claudicat Discharge Diagnosis: Lumbar spondylosis with radiculopathy Activity: As commented below Non-emergency contact: Primary Care Provider Call non-emergency contact if: you have any medication questions Follow-up/Referrals: Herman Hurley [Primary Care Provider] - 05/15/24 10:00 am (Appointment is with Luma at the [place] [facility]) Diet: Regular Addtl Attending Provider Instructions: ACTIVITY RECOMMENDATIONS: SELF CARE INSTRUCTIONS AFTER THORACIC/LUMBAR FUSIONS 1. You may walk to your tolerance. It is good exercise for your legs and back. Expect some back and intermittent leg aches and pains. 2. You may perform "counter-top" level activities (make a sandwich, leonard with a project, etc.). 3. No bending or lifting of more than 10 pounds or back twisting of any nature (roll like a log when turning in bed). 4. You may ride in a car for 20-30 minutes at a time. No driving until after your first visit with your doctor. 5. Frequent changes of position and restricting sitting to 30 minutes at a time will help limit the amount of back spasms and stiffness you may experience. 6. You may discontinue the use of ambulatory aids (cane, crutches, etc.) once your strength and confidence allow. 7. You may steel post installer the shower and let water strike your incision when you arrive home at least once daily. Do not take a tub bath, sit in a hot tub or go into a swimming pool until after your first recheck in the office. 8. You may resume previous diet. SPECIAL CARE INSTRUCTIONS: VERY IMPORTANT TO READ AND REVIEW A. Your surgical incision has been closed with a cosmetic suture under the skin that will dissolve in about 6 weeks. In 14 days, you can use a pair of clean scissors and cut the suture that is left outside of the skin at the ends of your incision. 1. The small skin tapes can be removed 7 days after surgery if they have not fallen off by that point. 2. You may keep the wound open to air as much as possible to promote healing after post-op day number 5 unless told otherwise by your doctor. 3. If you think the wound looks like it is becoming infected (redness or worsening drainage) and/or you are experiencing fever, chill or worsening back pain and muscle spasms, contact the office so that we may evaluate you as soon as possible. B. Complications are uncommon, but please contact us if you have any signs or symptoms of: 1. wound infection (fever higher than 102.5 degrees F, redness, separation of wound, drainage, or increasing pain from the incision) 2. blood clots in legs (pain, swelling, redness and warmth in legs) 3. urinary tract infection (fever higher than 102.5 degrees F, burning upon urination or increased frequency of urination) 4. nerve problems (inability to walk on your toes or heels, numbness, loss of bowel or bladder control) 5. any other symptoms that concern you C. Please call the office at if you have any concerns or questions about your operation or recovery. D. No smoking! Smoking drastically decreases the chance of a solid fusion. E. Do not take any anti-inflammatory medications (Indocin, Advil, Motrin, Aspirin, Naprosyn, etc.) as these may inhibit the chance of a solid fusion. Tylenol is okay to take for pain. MANAGING PAIN AFTER SPINAL SURGERY 1. Narcotic medication is intended for short-term use and will be provided for surgical pain. Surgical pain usually lasts for a period of 4-6 weeks. Narcotic medication includes Percocet, Vicodin, Darvocet, Tylenol #3 or Lortab. 2. Longer-term pain is more appropriately treated with non-narcotic medication such as Tylenol ES. 3. Muscle spasm is not appropriately treated with narcotics. Muscle relaxers such as Soma, Flexeril or Skelaxin can be used along with Tylenol ES. 4. Remember that we all live with some "aches and pains". This is not unusual or uncommon after an injury or as we get older. a. Back pain is expected and may include muscle spasms for 4 to 6 weeks after surgery. The pain should gradually improve. If the pain worsens for no apparent reason, please contact the office. b. Intermittent leg pain may also be experienced and should not be concerned about unless it worsens for no apparent reason. If so, please contact the office. 5. We will provide appropriate medication within the normal guidelines of their prescribed use. We will also be very cautious and aware of potential abuse and extended duration of patients' medication needs. a. Pain medications are for your comfort and to assist with sleep and rest so that the tissue can heal. They are not provided in order to return to normal activity and should not be used through the day. To do so or worsening pain at night can result from ongoing tissue damage and development of tolerance to the prescribed medicine. 6. Please allow 2-3 days to process refills. Prescriptions will not be mailed but must be picked up at the office. FOLLOW UP VISIT: Keep your scheduled follow-up appointment. Any questions, please call the office at . Pending Studies at Discharge: No Stand-Alone Forms: My [employer], Smoking Cessation Medications and DC Order Prescriptions: New tramadol 50 mg tablet 50 mg PO Q6H PRN (Reason: pain, moderate) Qty: 30 0RF oxycodone 5 mg tablet 5 mg PO Q6H PRN (Reason: pain) Qty: 30 0RF Continued aspirin 81 mg tablet,delayed release (DR/EC) 40.5 mg PO BID magnesium Tablet 1 tab PO QAM cholecalciferol (vitamin D3) [Vitamin D3] 125 mcg (5,000 unit) Tablet 125 mcg PO QAM Equolibrium 1 tab PO QAM [place] 1 tab PO QAM vitamin K2 1 tab PO QAM Excedrin Migraine 250-250-65 mg Tablet 1 tab PO Q6H PRN (Reason: Headache) tamsulosin [Flomax] 0.4 mg Capsule 0.4 mg PO DAILY PRN (Reason: urinary flow slowing) Discharge Orders: Discharge Order (Routine); Ordered 05/09/24 Ordered By: Richie Loomis Admission Data Admit Date/Time: 05/06/24 12:53 Attending Provider: Richie Loomis Admit Provider: Richie Loomis Primary Care Provider: Herman Hurley Other Providers: Aline Olivas
--- NOTE | 2024-05-09 16:04 | Hospitalist Progress Note ---
Date of Service May 09, 2024 Assessment & Plan (1) Lumbosacral spondylosis with radiculopathy: (2) S/P spinal surgery: Plan Neeraj Orteag is a 68-year-old male with past medical history significant for AAA s/p surgical repair in 2022, tobacco use disorder and prostate cancer [facility] after undergoing elective L3-S1 decompression and fusion for management of lumbosacral spondylosis with radiculopathy performed by Dr. Richie Loomis on 05/06/2024. Lumbosacral Spondylosis with Radiculopathy S/P Surgery: Acute blood loss anemia L3-S1 decompression and fusion performed by Dr. Richie Loomis on 05/06/2024. EBL: 500mL & Pre-Op Hgb: 14.1 [as of 04/16/2024] Hb post op of 11.7 g/dl Per ortho for pain control, wound care, anticoagulation and activities. Continue incentive spirometry, PT/OT when appropriate as per ortho team. Other Chronic Medical Conditions: * AAA - S/p surgical repair in 2022. Can continue home ASA. * Tobacco Use Disorder - Quit smoking ~7 weeks ago. Was previously smoking 3-4 cigarettes/day. * Prostate Cancer - Currently under observation. No history of chemotherapy or radiation. Continue Flomax. DVT Prophylaxis: SCDs/TEDs as per primary service. Code Status: FULL CODE PCP: Herman Casey MD [[facility] [place]] Disposition: Admitted in Med/Surg - Discharge planning as per primary service. This chart was completed in part utilizing Speech Voice Recognition Software. Grammatical errors, random word insertions, pronoun errors, and incomplete sentences are an occasional consequence of this system due to software limitations, ambient noise, and hardware issues. Any formal questions or concerns about the content, text, or information contained within the body of this dictation should be directly addressed to the provider for clarification. Admission and Anticipated Discharge Date Admission Date: May 06, 2024 Subjective Patient seen and examined at bedside. He is comfortable; not in distress. No significant events overnight Physical Exam Physical Exam: General: WD/WN, NAD, sitting up chair at bedside, pleasant, conversing appropriately. A+Ox3, euthymic affect. Respiratory: Normal respiratory effort, lungs clear to auscultation, no wheeze/rales/rhonchi. No accessory muscle use. Cardiovascular: Regular rate, rhythm, normal peripheral pulses, no BLE edema. Vessels: No JVD. Abdomen/GI: Normal bowel sounds, soft, nondistended, nontender to palpation in all quadrants. Extremities/Musculoskeletal: No cyanosis or clubbing, sensation intact in BLE, able to actively move his BLE. Neurologic: No overt focal deficits, CN's II-XI not formally tested but appear grossly intact bilaterally. Skin: No rashes, normal color, warm/dry. Results & Data Results & Data Vital Signs (Past 12 Hours) Vital Signs Temp Pulse Resp BP Pulse Ox O2 Del Method 05/09/24 07:42 36.3 C L 58 L 16 133/68 92 Room Air
== END 2024-05-09 12:34 | disposition home or self-care (01) | DRG 427 ==
LOC: ASU 07:53 → 3E 12:53